=== PATIENT | female | born 1990 | race Caucasian/White ===

== ENCOUNTER 2019-04-22 19:40 | Emergency (ER) | payer BC, OTHER ==
[2019-04-22 20:21] VITALS: TEMP 98.7
[2019-04-22] MEDS ORDERED: SODIUM CHLORIDE 0.9% 1,000 ML IV STA (21:31)
[2019-04-22] MEDS ORDERED: KETOROLAC 30 MG/ML 1 ML VIAL IVP STA (21:31)
[2019-04-22] MEDS ORDERED: ONDANSETRON 4 MG/2 ML VIAL IVP STA (21:31)
[2019-04-22 22:10] LABS: Amorphous Sediment,Urine Rare /hpf; Appearance,Urine Turbid (Clear); Bilirubin,Urine Negative (Negative); Blood,Urine Large (Negative); Color,Urine Red; Glucose,Urine (UA) Negative (Negative); Ketones,Urine Negative (Negative); Leukocyte Esterase,Urine Negative (Negative); Mucus,Urine Few /hpf; Nitrite,Urine Positive (Negative); Protein,Urine 2+ (Negative); RBC,Urine 66 /hpf (0-5); Specific Gravity,Urine 1.033 (1.001-1.035); Squamous Epithelial Cell,Urine 1 /hpf (0-4); Urobilinogen,Urine <2.0 mg/dL (<2.0); WBC,Urine 10 /hpf (0-5)
[2019-04-22 22:14] LABS: ALT 16 U/L (9-52); AST 18 U/L (14-36); Albumin 4.3 g/dL (3.5-5.0); Alkaline Phosphatase 99 U/L (38-126); Amylase 58 U/L (30-110); Anion Gap 11 mmol/L; Blood Urea Nitrogen 11 mg/dL (7-17); Calcium 9.1 mg/dL (8.4-10.2); Carbon Dioxide 22 mmol/L (22-30); Chloride 108 mmol/L (98-107); Glucose 88 mg/dL (74-99); Lipase 46 U/L (23-300); Potassium 4.1 mmol/L (3.5-5.1); Sodium 141 mmol/L (137-145); Total Bilirubin 0.3 mg/dL (0.2-1.3); Total Protein 7.2 g/dL (6.3-8.2)
[2019-04-22 22:26] LABS: Basophils # (A) 0.1 k/uL (0-0.2); Basophils % (A) 0 %; Eosinophils # (A) 0.4 k/uL (0-0.7); Eosinophils % (A) 3 %; HCT 37.5 % (34.0-46.0); Lymphocytes # (A) 2.9 k/uL (1.0-4.8); Lymphocytes % (A) 20 %; MCH 26.8 pg (25.0-35.0); MCV 83.8 fL (80.0-100.0); Mean Platelet Volume 7.3; Monocytes # (A) 0.6 k/uL (0-1.0); Monocytes % (A) 4 %; Neutrophils # (A) 10.7 k/uL (1.3-7.7); Neutrophils % (A) 72 %; Platelet Count 282 k/uL (150-450); RBC 4.48 m/uL (3.80-5.40); WBC 14.8 k/uL (3.8-10.6)
--- NOTE | 2019-04-22 23:21 | ED ---
Abdominal Pain HPI - General Chief Complaint: Abdominal Pain Stated Complaint: R side pain Time Seen by Provider: 04/22/19 20:58 Source: patient Mode of arrival: ambulatory Limitations: no limitations - History of Present Illness Initial Comments: 28-year-old female patient presents to the emergency department today for evaluation of right flank pain. Patient states she is also having discomfort in the right lower quadrant abdomen. Patient states that this started a few hours ago. Patient states that the pain waxes and wanes. Denies any nausea or vomiting. Denies any hematuria, dysuria, urinary frequency, urinary urgency. Patient denies history of similar symptoms. Denies any history of abdominal surgery. Denies fever or chills with this. Denies any abnormal vaginal bleeding or discharge. Patient denies any recent rash, shortness breath, chest pain, diarrhea, constipation, back pain, numbness, tingling, dizziness, weakness, headache, visual changes, or any other complaints. - Related Data Home Medications Medication Instructions Recorded Confirmed LORazepam [Ativan] 0.5 mg PO DAILY PRN 04/22/19 04/22/19 PARoxetine [Paxil] 20 mg PO DAILY 04/22/19 04/22/19 Previous Rx's Medication Instructions Recorded Cephalexin [Keflex] 500 mg PO Q6HR #40 cap 04/22/19 Allergies Allergy/AdvReac Type Severity Reaction Status Date / Time No Known Allergies Allergy Verified 04/22/19 21:09 Review of Systems ROS Statement: Those systems with pertinent positive or pertinent negative responses have been documented in the HPI. ROS Other: All systems not noted in ROS Statement are negative. Past Medical History Past Medical History: No Reported History History of Any Multi-Drug Resistant Organisms: MRSA Date of last positivie culture/infection: 2008 MDRO Source:: Abdomen and right arm Past Surgical History: Breast Surgery, Section Additional Past Surgical History / Comment(s): cyst removal from left breast. section Past Anesthesia/Blood Transfusion Reactions: No Reported Reaction Past Psychological History: No Psychological Hx Reported Smoking Status: Never smoker Past Alcohol Use History: Rare Past Drug Use History: Marijuana - Past Family History Mother Family Medical History: No Reported History General Exam Limitations: no limitations General appearance: alert, in no apparent distress, other (Physical well-developed, well-nourished adult female patient in no acute distress. Vital signs upon presentation are temperature 98.7F, pulse 82, respirations 18, blood pressure 131/83, pulse ox 98% on room air.) Eye exam: Present: normal appearance, PERRL, EOMI. Absent: scleral icterus, conjunctival injection, periorbital swelling ENT exam: Present: normal exam, normal oropharynx, mucous membranes moist Respiratory exam: Present: normal lung sounds bilaterally. Absent: respiratory distress, wheezes, rales, rhonchi, stridor Cardiovascular Exam: Present: regular rate, normal rhythm, normal heart sounds. Absent: systolic murmur, diastolic murmur, rubs, gallop, clicks GI/Abdominal exam: Present: soft, tenderness (Right lower quadrant tenderness), normal bowel sounds. Absent: distended, guarding, rebound, rigid Back exam: Present: normal inspection, CVA tenderness (R). Absent: CVA tenderness (L) Neurological exam: Present: alert, oriented X3, CN II-XII intact Psychiatric exam: Present: normal affect, normal mood Skin exam: Present: warm, dry, intact, normal color. Absent: rash Course Vital Signs 04/22/19 04/22/19 20:17 23:52 Temperature 98.7 F Pulse Rate 82 70 Respiratory 18 16 Rate Blood Pressure 131/83 110/65 O2 Sat by Pulse 98 Oximetry Medical Decision Making - Medical Decision Making 28-year-old female patient presents to the emergency department today for evaluation of right flank pain. Physical examination did reveal some right CVA tenderness. Abdomen is soft and nontender. She is afebrile. Labs reviewed and did reveal elevated white blood cell count of 14.8. Urinalysis did show evidence for urinary tract infection. Given this and patient's symptoms as well as evidence of blood in the urine we did perform CT abdomen and pelvis to rule out kidney stone. There is no evidence for kidney stone on the computed tomography scan. The patient symptoms are consistent with pyelonephritis. We'll give 1 dose of IV Rocephin here in the emergency department and discharged with a prescription for Keflex. She is instructed to follow-up with her primary care physician for recheck in 1-2 days. She is instructed to have repeat urinalysis performed once antibiotics are complete to ensure clearance of infection. Return parameters were discussed in detail. She verbalizes understanding and agrees with this plan. - Lab Data Result diagrams: 04/22/19 21:42 04/22/19 21:42 Lab Results 04/22/19 04/22/19 04/22/19 Range/Units 21:42 21:42 21:42 WBC 14.8 H (3.8-10.6) k/uL RBC 4.48 (3.80-5.40) m/uL Hgb 12.0 (11.4-16.0) gm/dL Hct 37.5 (34.0-46.0) % MCV 83.8 (80.0-100.0) fL MCH 26.8 (25.0-35.0) pg MCHC 32.0 (31.0-37.0) g/dL RDW 15.0 (11.5-15.5) % Plt Count 282 (150-450) k/uL Neutrophils % 72 % Lymphocytes % 20 % Monocytes % 4 % Eosinophils % 3 % Basophils % 0 % Neutrophils # 10.7 H (1.3-7.7) k/uL Lymphocytes # 2.9 (1.0-4.8) k/uL Monocytes # 0.6 (0-1.0) k/uL Eosinophils # 0.4 (0-0.7) k/uL Basophils # 0.1 (0-0.2) k/uL Sodium 141 (137-145) mmol/L Potassium 4.1 (3.5-5.1) mmol/L Chloride 108 H (98-107) mmol/L Carbon Dioxide 22 (22-30) mmol/L Anion Gap 11 mmol/L BUN 11 (7-17) mg/dL Creatinine 0.60 (0.52-1.04) mg/dL Est GFR (CKD-EPI)AfAm >90 (>60 ml/min/1.73 sqM) Est GFR (CKD-EPI)NonAf >90 (>60 ml/min/1.73 sqM) Glucose 88 (74-99) mg/dL Calcium 9.1 (8.4-10.2) mg/dL Total Bilirubin 0.3 (0.2-1.3) mg/dL AST 18 (14-36) U/L ALT 16 (9-52) U/L Alkaline Phosphatase 99 (38-126) U/L Total Protein 7.2 (6.3-8.2) g/dL Albumin 4.3 (3.5-5.0) g/dL Amylase 58 (30-110) U/L Lipase 46 (23-300) U/L Urine Color Red Urine Appearance Turbid H (Clear) Urine pH 6.0 (5.0-8.0) Ur Specific [place] 1.033 (1.001-1.035) Urine Protein 2+ H (Negative) Urine Glucose (UA) Negative (Negative) Urine Ketones Negative (Negative) Urine Blood Large H (Negative) Urine Nitrite Positive H (Negative) Urine Bilirubin Negative (Negative) Urine Urobilinogen <2.0 (<2.0) mg/dL Ur Leukocyte Esterase Negative (Negative) Urine RBC 66 H (0-5) /hpf Urine WBC 10 H (0-5) /hpf Ur Squamous Epith Cells 1 (0-4) /hpf Amorphous Sediment Rare H (None) /hpf Urine Mucus Few H (None) /hpf Urine HCG, Qual (Not Detectd) 04/22/19 Range/Units 21:42 WBC (3.8-10.6) k/uL RBC (3.80-5.40) m/uL Hgb (11.4-16.0) gm/dL Hct (34.0-46.0) % MCV (80.0-100.0) fL MCH (25.0-35.0) pg MCHC (31.0-37.0) g/dL RDW (11.5-15.5) % Plt Count (150-450) k/uL Neutrophils % % Lymphocytes % % Monocytes % % Eosinophils % % Basophils % % Neutrophils # (1.3-7.7) k/uL Lymphocytes # (1.0-4.8) k/uL Monocytes # (0-1.0) k/uL Eosinophils # (0-0.7) k/uL Basophils # (0-0.2) k/uL Sodium (137-145) mmol/L Potassium (3.5-5.1) mmol/L Chloride (98-107) mmol/L Carbon Dioxide (22-30) mmol/L Anion Gap mmol/L BUN (7-17) mg/dL Creatinine (0.52-1.04) mg/dL Est GFR (CKD-EPI)AfAm (>60 ml/min/1.73 sqM) Est GFR (CKD-EPI)NonAf (>60 ml/min/1.73 sqM) Glucose (74-99) mg/dL Calcium (8.4-10.2) mg/dL Total Bilirubin (0.2-1.3) mg/dL AST (14-36) U/L ALT (9-52) U/L Alkaline Phosphatase (38-126) U/L Total Protein (6.3-8.2) g/dL Albumin (3.5-5.0) g/dL Amylase (30-110) U/L Lipase (23-300) U/L Urine Color Urine Appearance (Clear) Urine pH (5.0-8.0) Ur Specific [place] (1.001-1.035) Urine Protein (Negative) Urine Glucose (UA) (Negative) Urine Ketones (Negative) Urine Blood (Negative) Urine Nitrite (Negative) Urine Bilirubin (Negative) Urine Urobilinogen (<2.0) mg/dL Ur Leukocyte Esterase (Negative) Urine RBC (0-5) /hpf Urine WBC (0-5) /hpf Ur Squamous Epith Cells (0-4) /hpf Amorphous Sediment (None) /hpf Urine Mucus (None) /hpf Urine HCG, Qual Not Detected (Not Detectd) - Radiology Data Radiology results: report reviewed, image reviewed ET the abdomen and pelvis without contrast was obtained. Report was reviewed in by Dr. Barron shows thickened under distended bladder. No evidence for hydronephrosis or ureteral stone. Disposition Clinical Impression: Pyelonephritis Disposition: HOME SELF-CARE Condition: Good Instructions (If sedation given, give patient instructions): Urinary Tract Infection in Women (ED), Kidney Infection (ED) Additional Instructions: Complete antibiotic prescription in full. Follow-up with your primary care physician for recheck in 1-2 days. Return to the emergency department immediately for any new, worsening, or concerning symptoms. Prescriptions: Cephalexin [Keflex] 500 mg PO Q6HR #40 cap Is patient prescribed a controlled substance at d/c from ED?: No Referrals: Nicky Durbin DO [Primary Care Provider] - 1-2 days Time of Disposition: 23:35
--- NOTE | 2019-04-22 23:27 | CT ---
EXAM: CT Abdomen and Pelvis Without Intravenous Contrast CLINICAL HISTORY: Right flank pain ITS.REASON CT Reason: Pain TECHNIQUE: Axial computed tomography images of the abdomen and pelvis without intravenous contrast. CTDI is 12.5 mGy and DLP is 710.7 mGy-cm. This CT exam was performed using one or more of the following dose reduction techniques: automated exposure control, adjustment of the mA and/or kV according to patient size, and/or use of iterative reconstruction technique. COMPARISON: No relevant prior studies available. FINDINGS: Limitations: Evaluation of the abdominal viscera is limited without intravenous contrast. Lung bases: No acute findings. ABDOMEN: Liver: Mildly enlarged fatty liver. Gallbladder and bile ducts: Dense material in the gallbladder. Pancreas: Unremarkable. Spleen: Mild splenomegaly. Adrenals: Unremarkable. Kidneys and ureters: No obstructing stones. No hydronephrosis. Stomach and bowel: No obstruction. PELVIS: Appendix: Normal caliber appendix. Bladder: Thickened underdistended bladder. Reproductive: Tampon noted. ABDOMEN and PELVIS: Intraperitoneal space: No free air. No significant fluid collection. Bones/joints: No acute fracture. Soft tissues: Small fat-containing umbilical hernia. Vasculature: See above. Lymph nodes: Small mesenteric and retroperitoneal lymph nodes. IMPRESSION: 1. Thickened underdistended bladder. No evidence of hydronephrosis or ureteral stone. 2. Additional incidental findings, as above.
[2019-04-22] MEDS ORDERED: cefTRIAXone IN SWFI 1,000 MG/10 ML SYRINGE IVP STA (23:34)
[2019-04-22 23:53] VITALS: BP 110/65; PULSE 70; RESP 16
== END 2019-04-22 23:58 | disposition home or self-care (01) ==
LOC: EC 19:40
DX: N12 Tubulo-interstitial nephritis, not specified as acute or chronic (principal); N32.89 Other specified disorders of bladder; D72.829 Elevated white blood cell count, unspecified; Z79.899 Other long term (current) drug therapy; Z86.14 Personal history of Methicillin resistant Staphylococcus aureus infection
CPT/HCPCS: 36415; 80053; 82150; 83690; 85025; 81001; 81025; 87086; 74176; 99284; 96374; 96375 ×2; 96361 ×2; J2405; J0696; J1885

== ENCOUNTER → 2022-07-31 | Outpatient (CLI) | payer BC ==
--- NOTE | 2022-07-31 16:46 | XR ---
EXAM: XR Right Tibia and Fibula, 2 Views CLINICAL HISTORY: ITS. REASON XR Reason: S86.111A TECHNIQUE: Frontal and lateral views of the right tibia and fibula. COMPARISON: No relevant prior studies available. FINDINGS: Bones/joints: Unremarkable. No acute fracture. No dislocation. Soft tissues: Unremarkable. No radiopaque foreign body. IMPRESSION: Normal right tibia and fibula x-rays.
== END | disposition home or self-care (01) ==
LOC: RADXRMAIN 14:35
PROVIDERS: ATTEND Emergency Medicine
DX: S86.111A Strain of other muscle(s) and tendon(s) of posterior muscle group at lower leg level, right leg, initial encounter (principal)

== ENCOUNTER → 2022-07-31 | Outpatient (CLI) | payer OTHER ==
--- NOTE | 2022-08-01 16:41 | US ---
EXAMINATION TYPE: US venous doppler duplex LE RT DATE OF EXAM: 07/31/2022 2:14 PM COMPARISON: NONE CLINICAL HISTORY: R22.43LOCALIZED SWELLING, MASS AND LUMP, LOWER VERDUGO. Swelling and pain. Patient stat es she feels like she "pulled her right calf muscle". SIDE PERFORMED: Right TECHNIQUE: The lower extremity deep venous system is examined utilizing real time linear array sonog [place] with graded compression, doppler sonography and color-flow sonography. VESSELS IMAGED: Common Femoral Vein Deep Femoral Vein Greater Saphenous Vein * Femoral Vein Popliteal Vein Small Saphenous Vein * Proximal Calf Veins (* superficial vessels) Right Leg: No evidence of DVT at this time. Hypoechoic/complex area seen within the medial-posterior calf at patient's area of pain: 3.5 x 3.1 x 1.4 cm. IMPRESSION: No ultrasound evidence for acute DVT in the right lower extremity. Towards end of study oval heterogeneous area likely reflects small to moderate size deep hematoma. If there is concern for tendon injury or rupture further investigation with MRI study may BE warranted.
== END | disposition home or self-care (01) ==
LOC: RADUSWWP 13:33
PROVIDERS: ATTEND Emergency Medicine
DX: S86.111A Strain of other muscle(s) and tendon(s) of posterior muscle group at lower leg level, right leg, initial encounter (principal)

== ENCOUNTER → 2024-10-15 | Outpatient (CLI) | payer OTHER ==
--- NOTE | 2024-10-15 11:48 | MM ---
Reason for Exam: Clinical finding. Baseline mammogram. Indicated Problems: Lump or thickening of the left side for 1 Month(s). Patient History: Menarche at age 11. First Full-Term at age 21. Patient has history of breast feeding. Patient used Hormonal Contraceptives for 5 years. 2010, Excisional Biopsy on the Left side. Last menstrual period: 09/30/2024 Prior Study Comparison: Patient's first Mammogram. Tissue Density: The breasts are heterogeneously dense, which may obscure small masses. Findings: Analyzed By CAD. No distinct mass or distortion. Ultrasound recommended at the site of clinical concern upper outer left breast. No suspicious microcalcifications. Overall Assessment: Incomplete: need additional imaging evaluation, BI-RAD 0 Management: Diagnostic Breast Ultrasound of the left breast. . Results were given to the patient verbally at the time of exam. Patient should continue monthly self-breast exams. A clinical breast exam by your physician is recommended on an annual basis. This exam should not preclude additional follow-up of suspicious palpable abnormalities. Note on Merle scores and lifetime risk: 1. A Merle score greater than 3% is considered moderate risk. If this is the case, consider specialist referral to assess eligibility for a risk reducing agent. 2. If overall lifetime risk for the development of breast cancer is 20% or higher, the patient may qualify for future screening with alternating mammogram and breast MRI. [facility], , 10/15/2024 11:45 AM. Electronically signed and approved by: Héctor Champagne M.D. Radiologis
--- NOTE | 2024-10-15 12:26 | USB ---
Reason for Exam: Clinical finding. Patient History: Menarche at age 11. First Full-Term at age 21. Patient has history of breast feeding. Patient used Hormonal Contraceptives for 5 years. 2010, Excisional Biopsy on the Left side. Technique: Method: Targeted. Findings: The area of palpable concern of the left breast, the axilla of the left breast and the retroareolar of the left breast were scanned. No solid or cystic masses are identified. Manage clinically. Overall Assessment: Negative, BI-RAD 1 Management: Screening Mammogram of both breasts at age 40. A clinical breast exam by your physician is recommended on an annual basis and results should be correlated with mammographic findings. This exam should not preclude additional follow-up of suspicious palpable abnormalities. Results were given to the patient verbally at the time of exam. [facility], , 10/15/2024 12:23 PM. Electronically signed and approved by: Héctor Champagne M.D. Radiologis
== END | disposition home or self-care (01) ==
LOC: RADMAMWWP 10:53
PROVIDERS: ATTEND Family Medicine
DX: R92.333 Mammographic heterogeneous density, bilateral breasts (principal); Z92.0 Personal history of contraception
CPT/HCPCS: 77062; 77066